=== PATIENT | male | born 1960 | race Caucasian/White ===

== ENCOUNTER 2019-10-27 08:11 | Outpatient (CLI) | payer BC, SELFPAY ==
--- NOTE | 2019-10-27 08:41 | US_ITS ---
WS: [id number] ULTRASOUND ABDOMEN LIMITED CLINICAL INFORMATION: ELEVATED LIVER ENZYMES COMPARISON: None. FINDINGS: Liver Size: Normal. Craniocaudal length: 13.3 cm. Echogenicity: Normal. Surface nodularity: None. Mass (size and location): None. Bile ducts Intrahepatic ducts: Normal. Common bile duct diameter: 0.2 cm. Gallbladder Normal. Gallstones: None. Gallbladder sludge: None. Gallbladder wall thickening: None. Pericholecystic fluid: None. Sonographic Ortiz sign: Absent. Pancreas Normal as visualized. Right kidney: Normal. Hydronephrosis: None. Size: 11.0 cm x 4.7 cm x 5.2 cm. Abdominal aorta and IVC Visualized portions are normal. Ascites: None. US/US abdomen limited [id number] IMPRESSION: Normal abdominal ultrasound
== END 2019-10-27 08:12 | disposition home or self-care (01) ==
LOC: RAD 08:16
PROVIDERS: PCP Internal Medicine; Visit Provider Internal Medicine
DX: R74.8 Abnormal levels of other serum enzymes (principal)
CPT/HCPCS: 76705

== ENCOUNTER 2020-11-05 08:10 | Outpatient (CLI) | payer OTHER, SELFPAY ==
--- NOTE | 2020-11-05 08:00 | USCV_ITS ---
Juan Antonio Gutierrez Age: 60 Gender: M : 1960 Exam Date: 11/05/2020 08:55 Ordering Phys: Eduardo Diggs MD ([email or web address]) Technologist: Hector Staples Exam Location: [facility] [place] Indication: PAROXYSMAL ATRIAL FIB BP: 129 / 78 HR: 70 Rhythm: Sinus Technical Quality: Good MEASUREMENTS (Male / Female) Normal Values 2D ECHO LV Diastolic Diameter PLAX 3.9 cm 4.2 - 5.9 / 3.9 - 5.3 cm LV Systolic Diameter PLAX 2.3 cm IVS Diastolic Thickness 1.0 cm 0.6 - 1.0 / 0.6 - 0.9 cm IVS Systolic Thickness 1.3 cm LVPW Diastolic Thickness 1.1 cm 0.6 - 1.0 / 0.6 - 0.9 cm LVPW Systolic Thickness 2.4 cm LVOT Diameter 2.0 cm LV Ejection Fraction 2D Teich 71.0 % LV Ejection Fraction MOD 2C 57.8 % LV Ejection Fraction 2C AL 57.1 % LA Diameter 4.2 cm LA Width 3.7 cm LA Height 5.4 cm RA Width 3.4 cm RA Height 3.9 cm Aorta at Sinotubular Diameter 2.3 cm M-MODE LV Diastolic Diameter MM 4.7 cm 4.2 - 5.9 / 3.9 - 5.3 cm LV Systolic Diameter MM 2.3 cm LV Ejection Fraction MM Teich 81.2 % IVS Diastolic Thickness MM 1.3 cm 0.6 - 1.0 / 0.6 - 0.9 cm IVS Systolic Thickness MM 1.5 cm LVPW Diastolic Thickness MM 1.0 cm 0.6 - 1.0 / 0.6 - 0.9 cm LVPW Systolic Thickness MM 1.7 cm Aortic Annulus Diameter 3.2 cm LA Ao Ratio MM 1.5 MV E Point Septal Separation 0.6 cm DOPPLER AV Peak Velocity 122.0 cm/s LVOT Peak Velocity 96.0 cm/s AV Area Cont Eq vti 2.2 cm squared AV Area Cont Eq pk 2.5 cm squared MV Peak Velocity 557.0 cm/s MV Area PHT 4.2 cm squared Mitral E to A Ratio 1.3 MV E' Velocity 29.5 cm/s Mitral E to LV E' Lateral Ratio 11.0 TR Peak Velocity 213.4 cm/s TR Peak Gradient 18.2 mmHg TR Mean Velocity 86.1 cm/s TR Mean Gradient 3.2 mmHg TR Velocity Time Integral 26.2 cm RV Acceleration Time 0.1 s RV Ejection Time 0.3 s RV AcT/ET 0.5 FINDINGS Left Ventricle Normal left ventricular cavity size, Severe left ventricular hypertrophy with apical regional thickening of left ventricle. Normal left ventricular systolic function. Left ventricular ejection fraction is estimated at 55 %. Right Ventricle Normal right ventricular size. Catheter/pacemaker wire visualized in the right ventricle. Right Atrium Normal right atrial size. Catheter/pacemaker wire in the right atrial cavity. Left Atrium Moderately increased left atrial size. Mitral Valve Mildly thickened mitral valve. No mitral valve stenosis. Modeate mitral valve regurgitation. Aortic Valve Aortic valve sclerosis without stenosis or regurgitation. Tricuspid Valve Structurally normal tricuspid valve without significant stenosis or regurgitation. Pulmonary artery systolic pressure is normal. Pulmonic Valve Structurally normal pulmonic valve without significant stenosis. There is no pulmonic regurgitation. Pericardium Normal pericardium without effusion. Aorta Normal ascending aorta dimension. CONCLUSIONS 1-Normal left ventricular cavity size, Severe left ventricular hypertrophy with apical regional thickening of left ventricle. Normal left ventricular systolic function. Left ventricular ejection fraction is estimated at 55 %. 2-Normal right ventricular size. Catheter/pacemaker wire visualized in the right ventricle. 3-Normal right atrial size. Catheter/pacemaker wire in the right atrial cavity. 4-Mildly thickened mitral valve. No mitral valve stenosis. Modeate mitral valve regurgitation. 5-There is no pericardial effusion. 6-When compared to the prior echocardiogram dated 11/18/2018, there appeared to be moderate mitral valve regurgitation now however left medical ejection fraction remains preserved Eduardo Diggs MD (Electronically Signed) Final Date: 06 November 2020 18:47 S
== END 2020-11-05 08:11 | disposition home or self-care (01) ==
PROVIDERS: PCP Internal Medicine; Visit Provider Internal Medicine Cardiovascular Disease
DX: I48.0 Paroxysmal atrial fibrillation (principal); I34.0 Nonrheumatic mitral (valve) insufficiency
CPT/HCPCS: 93306

== ENCOUNTER → 2021-02-06 10:14 | Outpatient (BNVA) | payer OTHER, SELFPAY | PROVIDERS: PCP Internal Medicine; Visit Provider Nurse Practitioner | DX: M25.571 Pain in right ankle and joints of right foot (principal) | CPT/HCPCS: 73610 ==

== ENCOUNTER 2024-04-25 10:44 | Outpatient (CLI) | payer OTHER, SELFPAY ==
--- NOTE | 2024-04-25 10:58 | XR_ITS ---
WS: [id number] XR foot LT min 3V* [id number] REASON FOR EXAM: pain in left foot FINDINGS: No fracture or focal bone lesion. Mild to moderate valgus subluxation of the first MTP joint. The remaining joint spaces of the forefoo t are intact and well preserved. Joint spaces of the midfoot and hindfoot are intact and well preserved. Small calcaneal anterior and posterior enthesophytes. XR/XR foot LT min 3V* [id number] IMPRESSION: No acute bone or joint abnormality. Mild to moderate hallux valgus. Small calcaneal enthesophytes.
== END 2024-04-25 10:45 | disposition home or self-care (01) ==
PROVIDERS: PCP Internal Medicine; Visit Provider Internal Medicine
DX: M77.32 Calcaneal spur, left foot (principal); M20.12 Hallux valgus (acquired), left foot
CPT/HCPCS: 73630

== ENCOUNTER → 2024-08-23 08:22 | Outpatient (BNVA) | payer OTHER, SELFPAY | PROVIDERS: PCP Internal Medicine; Visit Provider Podiatrist Foot & Ankle Surgery | DX: M79.672 Pain in left foot (principal); E11.42 Type 2 diabetes mellitus with diabetic polyneuropathy; M67.472 Ganglion, left ankle and foot; M21.612 Bunion of left foot; Z79.84 Long term (current) use of oral hypoglycemic drugs | CPT/HCPCS: 73630 ==

== ENCOUNTER 2024-09-29 11:46 | Outpatient (CLI) | payer OTHER, SELFPAY | END 2024-09-29 11:47 | disposition home or self-care (01) | LOC: SPT 11:47 | PROVIDERS: PCP Internal Medicine; Visit Provider Podiatrist Foot & Ankle Surgery | DX: Z46.89 Encounter for fitting and adjustment of other specified devices (principal); M67.472 Ganglion, left ankle and foot; M21.612 Bunion of left foot; E11.42 Type 2 diabetes mellitus with diabetic polyneuropathy | CPT/HCPCS: L3030 ==